=== PATIENT | male | born 1995 | race Two or more races ===

== ENCOUNTER 2016-07-05 23:59 | Emergency (ER) | payer OTHER ==
[~2016-07-05] VITALS: Ht 172.7 cm; Wt 72.6 kg
[2016-07-06] MEDS ORDERED: LORazepam Inj 2mg/ml 1ml IV ONE (00:15)
[2016-07-06 00:20] VITALS: BP 127/52
--- NOTE | 2016-07-06 00:59 | Emergency Room Report ---
History of Present Illness General Chief Complaint: Vertigo Source: Patient Present Illness HPI Is a 21-year-old male with no past history. He presents with chief complaint of dizziness and room spinning. Onset was acute. Occur at a family function. He vomited 3 times. He said everything around him is spinning. He had a viral illness about 2 weeks ago. No focal deficit. No fever chills but no diarrhea. No runny nose. Allergies: Coded Allergies: No Known Allergies (Unverified , 07/06/16) Patient History Past Medical History: none, see triage record, old chart reviewed Past Surgical History: none Pertinent Family History: none Social History: Denies: smoking Immunizations: other Reviewed Nursing Documentation: PMH: Agreed, PSxH: Agreed Nursing Documentation-PMH Past Medical History: No Stated History Review of Systems Eye: Denies: blurred vision, eye pain ENT: Denies: ear pain, nose congestion, throat swelling Respiratory: Denies: cough, shortness of breath Cardiovascular: Denies: chest pain, palpitations Gastrointestinal: Reports: nausea, vomiting, Denies: abdominal pain, diarrhea Musculoskeletal: Denies: back pain, joint pain Skin: Denies: rash Neurological: Denies: headache, numbness Endocrine: Denies: increased thirst, increased urine Hematologic/Lymphatic: Denies: easy bruising All Other Systems: negative except mentioned in HPI Physical Exam Vital Signs Date Time Temp Pulse Resp B/P Pulse Ox O2 Delivery O2 Flow Rate FiO2 07/06/16 00:11 97.9 96 16 131/64 100 Room Air vitals normal Sp02 EP Interpretation: reviewed, normal General Appearance: well appearing, no apparent distress, alert Head: normocephalic, atraumatic Eyes: bilateral eye EOMI, bilateral eye PERRL ENT: hearing grossly normal, normal pharynx Neck: full range of motion, supple, no meningismus Respiratory: chest non-tender, lungs clear, normal breath sounds Cardiovascular #1: regular rate, rhythm, no murmur Gastrointestinal: normal bowel sounds, non tender, no mass, no organomegaly, no bruit, non-distended Musculoskeletal: back normal, gait/station normal, normal range of motion Psychiatric: mood/affect normal Skin: warm/dry Medical Decision Making Diagnostic Impression: Primary Impression: Vertigo ER Course Patient presents with vertigo symptoms. Most likely labyrinthitis secondary to previous viral infection. No evidence of central vertigo. No evidence of TIA or CVA. No evidence of vertebrobasilar insufficiency. He is almost asymptomatic now. We'll discharge home. Last Vital Signs Date Time Temp Pulse Resp B/P Pulse Ox O2 Delivery O2 Flow Rate FiO2 07/06/16 00:11 97.9 96 16 131/64 100 Room Air Status: improved Disposition: HOME, SELF-CARE Condition: Improved Scripts Meclizine Hcl* (MECLIZINE*) 25 Mg Tablet 50 MG ORAL THREE TIMES A DAY, #30 TAB Prov: YEIMY STOCKTON M.D. 07/06/16 Referrals: NOT CHOSEN [facility]/,REFERRING (PCP) Patient Instructions: Vertigo Additional Instructions: Followup with your Dr. in 7 days. Return if symptom worsen. YEIMY STOCKTON M.D. July 06, 2016 00:58
[2016-07-06 01:19] VITALS: BP 112/49
[2016-07-06] MEDS ORDERED: MECLIZINE HCL25 MG ORAL (01:43)
[2016-07-06 01:45] VITALS: BP 107/52
== END 2016-07-06 01:50 | disposition home or self-care (01) ==
LOC: EMR 07-06 00:17
DX: R42 Dizziness and giddiness (principal); R11.2 Nausea with vomiting, unspecified
CPT/HCPCS: 96374; 96375; 99284; J2405